=== PATIENT | male | born 1945 | race Caucasian/White ===

== ENCOUNTER → 2016-10-11 | Outpatient (CLI) | payer MEDICARE ==
--- NOTE | 2016-10-11 10:21 | MM ---
Reason for exam: additional evaluation requested from prior study. Last mammogram was performed 1 year and 1 month ago. History: Patient has history of breast cancer at age 69. Malignant US breast needle core RT of the right breast, September 13, 2015. Malignant US biopsy breast VAD RT of the right breast, September 13, 2015. Taking tamoxifen beginning at age 70. Physical Findings: Nurse did not find any significant physical abnormalities on exam. MG 3D Diag Mammo W/Cad LT CC and MLO view(s) were taken of the left breast. Prior study comparison: September 08, 2015, bilateral MG 3d diag mammo w/cad TELLO. The breast tissue is almost entirely fat. Finding: There are few typically benign round calcifications in the left breast. There is no discrete abnormality. There is no discrete abnormality. These results were verbally communicated with the patient and result sheet given to the patient on 10/11/16. ASSESSMENT: Benign, BI-RAD 2 RECOMMENDATION: Clinical management of the left breast.
== END | disposition home or self-care (01) ==
LOC: RADMAMWWP 06:48
PROVIDERS: ATTEND Internal Medicine Hematology & Oncology
DX: Z85.3 Personal history of malignant neoplasm of breast (principal); Z79.810 Long term (current) use of selective estrogen receptor modulators (SERMs)
CPT/HCPCS: G0206; G0279

== ENCOUNTER → 2017-10-14 | Outpatient (CLI) | payer MEDICARE ==
--- NOTE | 2017-10-14 10:40 | MM ---
Reason for exam: additional evaluation requested from prior study. Last mammogram was performed 1 year ago. History: Patient has history of breast cancer at age 69. Malignant US breast needle core RT of the right breast, September 13, 2015. Malignant US biopsy breast VAD RT of the right breast, September 13, 2015. Taking tamoxifen beginning at age 70. Physical Findings: Nurse did not find any significant physical abnormalities on exam. MG Diagnostic Mammo LT w CAD CC and MLO view(s) were taken of the left breast. Prior study comparison: October 11, 2016, left breast MG 3d diag mammo w/cad LT. September 08, 2015, bilateral MG 3d diag mammo w/cad TELLO. The breast tissue is almost entirely fat. No suspicious calcifications are seen. There is no discrete abnormality. These results were verbally communicated with the patient and result sheet given to the patient on 10/14/17. ASSESSMENT: Incomplete: need additional imaging evaluation, BI-RAD 0 RECOMMENDATION: Ultrasound of the left breast.
--- NOTE | 2017-10-14 10:43 | USB ---
Reason for exam: additional evaluation requested from abnormal screening. History: Patient has history of breast cancer at age 69. Malignant US breast needle core RT of the right breast, September 13, 2015. Malignant US biopsy breast VAD RT of the right breast, September 13, 2015. Taking tamoxifen beginning at age 70. US Breast LT Left complete breast ultrasound includes all four quadrants, the retroareolar region and axilla. Finding demonstrates no cystic or solid lesion seen. These results were verbally communicated with the patient and result sheet given to the patient on 10/14/17. ASSESSMENT: Negative, BI-RAD 1 RECOMMENDATION: Follow-up diagnostic mammogram and ultrasound of the left breast in 1 year.
== END | disposition home or self-care (01) ==
LOC: RADMAMWWP 09:10
PROVIDERS: ATTEND Internal Medicine Hematology & Oncology
DX: R92.8 Other abnormal and inconclusive findings on diagnostic imaging of breast (principal); Z85.3 Personal history of malignant neoplasm of breast
CPT/HCPCS: 77065

== ENCOUNTER → 2019-01-06 | Outpatient (CLI) | payer MEDICARE ==
--- NOTE | 2019-01-06 08:45 | MM ---
Reason for exam: additional evaluation requested from prior study. Last mammogram was performed 1 year and 3 months ago. History: Patient has history of breast cancer at age 69. Malignant US breast needle core RT of the right breast, September 13, 2015. Malignant US biopsy breast VAD RT of the right breast, September 13, 2015. Taking tamoxifen beginning at age 70. Physical Findings: Nurse did not find any significant physical abnormalities on exam. MG 3D Diag Mammo W/Cad LT CC, MLO, and XCCL view(s) were taken of the left breast. Prior study comparison: October 14, 2017, left breast MG diagnostic mammo LT w CAD. October 11, 2016, left breast MG 3d diag mammo w/cad LT. There are scattered fibroglandular densities. No significant new findings when compared with previous films. These results were verbally communicated with the patient and result sheet given to the patient on 01/06/19. ASSESSMENT: Benign, BI-RAD 2 RECOMMENDATION: Follow-up diagnostic mammogram of the left breast in 1 year.
== END | disposition home or self-care (01) ==
LOC: RADMAMWWP 07:45
PROVIDERS: ATTEND Internal Medicine Hematology & Oncology
DX: Z08 Encounter for follow-up examination after completed treatment for malignant neoplasm (principal); Z85.3 Personal history of malignant neoplasm of breast; Z90.11 Acquired absence of right breast and nipple
CPT/HCPCS: 77065; G0279; 77061

== ENCOUNTER → 2022-01-24 | Outpatient (CLI) | payer MEDICARE ==
--- NOTE | 2022-01-24 11:17 | US ---
EXAMINATION TYPE: US venous doppler duplex UE RT DATE OF EXAM: 01/24/2022 COMPARISON: NONE CLINICAL HISTORY: R22.31 Swelling right upper extremity. Swelling within the right arm x 2 weeks. Hx cancer right breast 7 years ago, chemo, radiation, surgery. No hx of DVT. Patient does not take blood thinners. SIDE PERFORMED: Right Arm Right Arm: No evidence of DVT. Forearm edema visualized. Anechoic area seen within the medial right wrist near the ulnar vessels: 1.1 x 1.0 x 0.8 cm. Incidental finding: Heterogenous hypoechoic solid nodule seen within mid-inferior right thyroid lobe: 2.6 x 2.3 x 2.3 cm. This demonstrates smooth margins without echogenic foci. IMPRESSION: 1. No evidence for deep venous thrombosis of the right upper extremity. Forearm edema. 2. Anechoic lesion near the medial right wrist which may represent a ganglion cyst. Clinical correla tion is recommended. 3. 2.6 cm heterogenous right thyroid lobe nodule. Further evaluation with dedicated thyroid ultrasou nd recommended.
== END | disposition home or self-care (01) ==
LOC: RADUSWWP 10:15
PROVIDERS: ATTEND Family Medicine
DX: E04.1 Nontoxic single thyroid nodule (principal)

== ENCOUNTER → 2023-01-03 | Outpatient (CLI) | payer MEDICARE ==
--- NOTE | 2023-01-03 10:55 | MR ---
EXAMINATION TYPE: MR Prostate wo/w con DATE OF EXAM: 01/03/2023 9:56 AM COMPARISON: None. CLINICAL INDICATION:Male, 77 years old with history of C50.421 BREAST CANCER; Breast cancer TECHNIQUE: Multi-planar, multi-sequence imaging of the pelvis is performed prior to and following the uncomplicated administration of bolus intravenous gadolinium. CONTRAST: 10 [facility] Interpretive Criteria: PI-RADS v2.1 SERUM PSA: 10.86 on 03/13/2022. 13.67 on 03/20/2021. SURGICAL PATHOLOGY: No data available. FINDINGS: Prostatic dimensions: 9.1 x 6.9 x 6.3 cm. Ellipsoid Volume: 207.12 (PSA density=0.05 ng/mL/mL) CENTRAL GLAND (Central and Transition Zones/CZ+TZ): Multiple bilateral, heterogenous appearing hypertrophic stromal nodules, without suspicious lesion. M edian lobe hypertrophy with protrusion into the base of the bladder. (PI-RADS 2) PERIPHERAL ZONE (PZ): Atrophic and thinned secondary to central gland hypertrophy changes, No evidence of masslike abnormal ity, or localized perfusional hypervascularity, to further suggest a focus of clinically significant prostate cancer. (PI-RADS 2) SEMINAL VESICLES (SV): Diffusely collapse or atrophic, bilaterally. PERIPROSTATIC TISSUES: Unremarkable. LYMPH NODES: No enlarged lymph nodes identified. REMAINING PELVIS: Bladder wall is within normal limits given distention. No abnormal free or organized intrapelvic fluid collection. No pathologic bowel dilation or mural thickening. Colonic diverticula are present. Bilateral fat containing inguinal hernias. OSSEOUS STRUCTURES: No suspicious osseous abnormality. IMPRESSION: 1. No specific features for high-risk prostate cancer. Maximum PI-RADS score: 2. 2. Substantial BPH, estimated gland volume 207.12 (mL.
== END | disposition home or self-care (01) ==
LOC: RADMRIMAIN 08:31
PROVIDERS: ATTEND Radiology Radiation Oncology
DX: C50.421 Malignant neoplasm of upper-outer quadrant of right male breast (principal); N40.0 Benign prostatic hyperplasia without lower urinary tract symptoms
CPT/HCPCS: 72197; A9585